=== PATIENT | female | born 1980 | race Hispanic/Latino ===

== ENCOUNTER 2018-05-10 13:47 | Emergency (ER) | payer BC, OTHER ==
--- OUTSIDE RECORDS SUMMARY | 2018-05-10 13:49 | XMS REPORT | Clinical Summary ---
:1980 Author Organization [facility] Address [address] [place] [address] Care Team Providers Name Role Phone Asked, No Pcp Primary Care Provider Unavailable Allergies No Known Allergies Current Medications Prescription Sig. Disp. Refills Start Date End Date Status losartan (COZAAR) 25 MG TAKE ONE (1) 3 09/27/2017 Active tablet TABLET(S) BY MOUTH ONCE A DAY. Active Problems Not on file Encounters Date Type Specialty Care Team Description 10/24/2017 Office Visit Obstetrics and [facility] [address] woman exam Gynecology MD Marium (Primary Dx) after 05/09/2017 Family History Medical History Relation Name Comments Diabetes Father Hypertension Father Heart attack Maternal Grandfather Hypothyroidism Mother Cancer Paternal Grandfather prostate Relation Name Status Comments Father Alive Maternal Grandfather Mother Alive Paternal Grandfather Social History Tobacco Use Types Packs/Day Years Used Date Never Smoker Smokeless Tobacco: Never Used Alcohol Use Drinks/Week oz/Week Comments No Sex Assigned at Date Recorded Not on file Last Filed Vital Signs Vital Sign Reading Time Taken Blood Pressure 138/87 10/24/2017 9:45 AM CDT Pulse 68 10/24/2017 9:45 AM CDT Temperature - - Respiratory Rate - - Oxygen Saturation - - Inhaled Oxygen Concentration - - Weight 61.7 kg (136 lb) 10/24/2017 9:45 AM CDT Height 162.6 cm (5' 4") 10/24/2017 9:45 AM CDT Body Mass Index 23.34 10/24/2017 9:45 AM CDT Plan of Treatment Health Maintenance Due Date Last Done Comments CERVICAL CANCER SCREENING 2002 INFLUENZA VACCINE 03/01/2018 Procedures Procedure Name Priority Date/Time Associated Diagnosis Comments HPV MRNA E6/E7 Routine 10/24/2017 10:50 AM Results for this CDT procedure are in the results section. THINPREP TIS PAP Routine 10/24/2017 10:50 AM Results for this CDT procedure are in the results section. after 05/09/2017 Results HPV mRNA E6/E7 (10/24/2017 10:50 AM) HPV mRNA e6/e7 Not Detected Not Detected [facility] Comment: This test was performed using the APTIMA HPV Assay ([employer] This assay detects E6/E7 viral messenger RNA (mRNA) from 14 high-risk HPV types (16,18,31,33,35,39,45,51,52,56,58,59,66,68). Other Results Text Performing Organization Information: Site ID: [id number] Name: [facility] Address: [address] [place] [id number] Director: Luci Reardon MD Performing Organization Address [facility] Phone Number [place] [phone] THINPREP TIS PAP (10/24/2017 10:50 AM) Clinical information None given [facility] Date of last menstrual NONE GIVEN Pump! [facility] period [place] Prev. pap: NONE GIVEN [facility] [place] Prev. bx: NONE GIVEN [facility] [place] Source None given [facility] Statement of adequacy [facility] Comment: [place] Satisfactory for evaluation. Endocervical/transformation zone component present. Age and/or menstrual status not provided Interpretation/result: Comment: Negative for [facility] intraepithelial lesion or [place] malignancy. Comment [facility] Comment: [place] Tip of collection device in vial This Pap test has been evaluated with computer assisted technology. Training Program Manager [facility] Comment: [place] L[facility], CT(ASCP) CT screening location: [place] [id number] Comment [facility] Comment: [place] EXPLANATORY NOTE: The Pap is a screening test for cervical cancer. It is not a diagnostic test and is subject to false negative and false positive results. It is most reliable when a satisfactory sample, regularly obtained, is submitted with relevant clinical findings and history, and when the Pap result is evaluated along with historic and current clinical information. Other Results Text Performing Organization Information: Site ID: [id number] Name: [facility] Address: [address] [place] [phone] Director: Luci Reardon MD Performing Organization Address City/State/Zipcode Phone Number [facility] [place] [address] [place] [address] after 05/09/2017 Insurance Payer Benefit Plan / Group Subscriber ID Type Phone Address CYNDI HANNA LOCAL PLUS/OPAL xxxxxxxxx HMO
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
[2018-05-10 15:40] LABS: Urine Blood 2+ (NEG); Urine Glucose NEGATIVE (NEG); Urine Protein NEGATIVE (NEG); Urine Specific Gravity 1.025 (1.005-1.030)
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
== END 2018-05-10 16:04 | disposition home or self-care (01) ==
LOC: ER 13:47
DX: M54.5 Low back pain (principal); V49.49XA Driver injured in collision with other motor vehicles in traffic accident, initial encounter; I10 Essential (primary) hypertension
CPT/HCPCS: 72131; 81003; 81025; 99284

== ENCOUNTER 2020-08-12 07:29 | Emergency (ER) | payer OTHER ==
--- OUTSIDE RECORDS SUMMARY | 2020-08-12 07:30 | XMS REPORT | Continuity of Care Document ---
:[address] [facility] [place] Address [address] [place] [address] Care Team Providers Name Role Phone Asked, No Pcp Primary Care Physician Unavailable Problems Condition Condition Condition Status Onset Resolution Last Treating Co mments Source Name Details Category Date Date Treatment Clinician Date Sciatica Sciatica Problem [facility] Sciatica, Sciatica, Problem Active [facility] right side right side [facility] Pain in Pain in Diagnosis [facility] left [facility] Pain in Pain in Problem Active [facility] right knee [facility] Allergies, Adverse Reactions, Alerts This patient has no known allergies or adverse reactions. Family History Family Member Diagnosis Comments Start Date Stop Date Source Natural father Diabetes [facility] Natural father Hypertension [place] [facility] Maternal grandfather Heart attack [facility] Natural mother Hypothyroidism [place] [facility] Paternal grandfather Cancer [facility] Social History Social Habit Start Date Stop Date Quantity Comments Source Sex Assigned At [facility] ethodi Tobacco use and 2019-07-31 2019-07-31 Never used [facility] allaodi exposure 00:00:00 00:00:00 Alcohol intake 2019-07-31 2019-07-31 Current [facility] thodist 00:00:00 00:00:00 non-drinker of alcohol (finding) Smoking Status Start Date Stop Date Source Never smoker [place] [facility] Medications Ordered Filled Start Stop Current Ordering Indication Dosage Frequency Signature Comments Components Source Medication Medication Date Date Medication? Clinician (SIG) Name Name clotrimazol 2018-08 2020- No Acute Q.5D Apply Chiqui varinder e-betametha 08-14 vaginitis topically Methodi sone 00:00: 23:59 2 (two) st (LOTRISONE) 00 :00 times a 1-0.05 % day for 14 cream days. losartan Yes TAKE ONE [place] on (COZAAR) 25 2-27 (1) Methodi MG tablet 00:00: TABLET(S) st 00 BY MOUTH ONCE A DAY. Losartan Losartan Yes Santy not [facility] Potassium Potassium [place]ilar defined [facility] Procedures This patient has no known procedures. Plan of Care Planned Activity Planned Date Details Comments Source Future Scheduled 2020-03-01 INFLUENZA VACCINE [place] [facility] Test 00:00:00 [code = INFLUENZA VACCINE] Future Scheduled 2002 Screening for [facility] thodist Test 00:00:00 malignant neoplasm of cervix (procedure) [code = 974308733] Future Scheduled 1997 COVID-19 VACCINE [place] [facility] Test 00:00:00 (#1) [code = COVID-19 VACCINE (#1)] Encounters Start End Encounter Admission Attending Care Care Encounter Source Date/Time Date/Time Type Type Clinicians Facility Department ID 2019-04-09 2019-04-09 [facility] [id number] [facility] [address] 09:30[facility]00 09[facility]30[facility] Results This patient has no known results.
--- OUTSIDE RECORDS SUMMARY | 2020-08-12 07:30 | XMS REPORT | Clinical Summary ---
:1980 Author Organization [facility] Address [address] [place] [address] Care Team Providers Name Role Phone Asked, No Pcp Primary Care Provider Unavailable Allergies No Known Active Allergies Medications Medication Sig Dispensed Refills Start Date End Date Status losartan (COZAAR) TAKE ONE (1) 3 09/27/2017 Active 25 MG tablet TABLET(S) BY MOUTH ONCE A DAY. clotrimazole-betame Apply topically 2 45 g 0 07/31/2019 0 08/14/2019 thasone (LOTRISONE) (two) times a day 1-0.05 % for 14 days. creamIndications: Acute vaginitis Active Problems No known active problems Surgical History Surgery Date Site/Laterality Comments SECTION 2006,2016 BREAST SURGERY Left 2004 cyst Medical History Medical History Date Comments Hypertension Family History Medical History Relation Name Comments Diabetes Father Hypertension Father Heart attack Maternal Grandfather Hypothyroidism Mother Cancer Paternal Grandfather prostate Relation Name Status Comments Father Alive Maternal Grandfather Mother Alive Paternal Grandfather Social History Tobacco Use Types Packs/Day Years Used Date Never Smoker Smokeless Tobacco: Never Used Alcohol Use Drinks/Week oz/Week Comments No Sex Assigned at Date Recorded Not on file Obstetrics History Grav Para Term Pre Abrt (TAB) (SAB) (Ect) Mult Lvng Comments 2 2 Date Outcome GA Total Labor/2nd/3rd Weight Sex Delivery Anes PTL Sowmya A 1 A5 Name Clin Labor Last Filed Vital Signs Not on file Plan of Treatment Health Maintenance Due Date Last Done Comments COVID-19 VACCINE (#1) 1997 CERVICAL CANCER SCREENING 2002 INFLUENZA VACCINE 03/01/2020 Results Not on fileafter 08/12/2019 Advance Directives For more information, please contact: [phone] Type Date 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
[2020-08-12] MEDS ORDERED: ONDANSETRON 4 MG/2 ML VIAL ONE (09:45)
[2020-08-12] MEDS ORDERED: NA CHLORIDE 0.9% 1,000 ML ONE (09:46)
[2020-08-12] MEDS ORDERED: KETOROLAC 30 MG/ML INJ ONE (09:46)
[2020-08-12 09:58] LABS: Absolute Lymphocytes (CBC) 1.1 K/uL (0.7-4.9); Basophils % 0.3 % (0-1.3); Hematocrit 40.8 % (36.0-45.0); Lymphocytes % 20.5 % (15.3-44.8); MPV 8.6 fL (7.6-11.3); RBC Red Blood Cell Count 4.77 M/uL (3.86-4.86)
--- NOTE | 2020-08-12 10:03 | RAD REPORT ---
EXAM DESCRIPTION: CT - Stone Protocol - 08/12/2020 9:41 am CLINICAL HISTORY: FLANK PAIN COMPARISON: No comparisons TECHNIQUE: Axial 3 on the right side mm thick images were obtained without oral or IV contrast. The [id number] spans the entirety of the system including uppermost abdomen and lung bases. All CT scans are performed using dose optimization technique as appropriate and may include automated exposure control or mA/KV adjustment according to patient size. FINDINGS: No hydronephrosis is present and no obstructing ureteral calculi. No suspicious renal mass es. Isodense masses and pyelonephritis are not excluded on a stone protocol CT scan. No significant a drenal finding. No urinary bladder suspicious finding. Patient has numerous phleboliths in the pelvic floor. Imaged portions of the liver, spleen and pancreas show no suspicious findings on non-contrast imaging . No gallbladder or biliary tree abnormality identified. Gallstones can be occult on CT imaging. No acute bowel finding. Patient has moderate stool volume filling the colon. Cecum is low lying at th e floor the pelvis. No appendicitis findings. No mass or bulky lymphadenopathy. There is laxity of the abdominal wall of the umbilicus without fasc ia disruption seen. No free air or pneumatosis. Uterus and ovaries show no suspicious findings. There is physiologic quantity of free fluid in the cul de sac. No significant bony abnormality. IMPRESSION: No hydronephrosis, obstructing calculus or acute finding. Isodense masses and pyelonephritis are not excluded on stone protocol technique. Moderate stool volume throughout the colon including the cecum which is along the floor the pelvis. T he appendix is unremarkable. No RUSTIC FENCE [employer]ILDER abnormality seen.
--- NOTE | 2020-08-12 10:12 | RAD REPORT ---
EXAM DESCRIPTION: RAD - Lumbar Spine 3 Views - 08/12/2020 9:57 am CLINICAL HISTORY: PAIN COMPARISON: Lumbar Spine 3 Views dated 04/09/2019 FINDINGS: A three-view lumbar spine examination was performed. Lumbar bodies are normal in height and alignment. No fracture or acute bony process seen. No disc spa ce narrowing. L5-S1 facet joint degenerative changes are present. No pars defects identified. Lumbar findings are not significantly different from comparison. Large amount of stool is present filling but not dilating the colon. IMPRESSION: Lower lumbar facet joint degenerative change similar to comparison. No acute lumbar find ing. Large stool volume in the colon.
[2020-08-12 10:14] LABS: ALT/SGPT 17 U/L (12-78); AST/SGOT 13 U/L (15-37); Albumin 4.2 g/dL (3.4-5.0); Alkaline Phosphatase 65 U/L (45-117); BUN Blood Urea Nitrogen 17 mg/dL (7-18); Bicarbonate 28 mmol/L (21-32); Bilirubin Direct 0.1 mg/dL (0-0.2); Bilirubin Total 0.5 mg/dL (0.2-1.0); Glucose Level 95 mg/dL (74-106); Lipase 118 U/L (73-393); Potassium 4.3 mmol/L (3.5-5.1); Protein, Total 7.8 g/dL (6.4-8.2); Sodium Level 140 mmol/L (136-145)
--- NOTE | 2020-08-12 11:20 | EDPHYS ---
Physician Documentation [facility] Name: Rosalva Blue Age: 40 yrs Sex: Female : 1980 Arrival Date: 08/12/2020 Time: 07:32 Bed 20 Private MD: Marcelo Concepcion HPI: 08/12 09:28 This 40 yrs old Female presents to ER via Ambulatory with complaints of Low michael Back Pain. 09:28 The patient presents with pain that is acute, with no known mechanism of injury. The michael symptoms are located in the lumbar area, right mid back and right low back. The pain does not radiate. The problem was sustained from unknown cause. Onset: The symptoms/episode began/occurred yesterday. Modifying factors: The patient symptoms are alleviated by nothing, the patient symptoms are aggravated by movement, nothing. Associated signs and symptoms: The patient has no apparent associated signs or symptoms. Severity of symptoms: At their worst the symptoms were moderate, in the emergency department the symptoms are unchanged. The patient has not experienced similar symptoms in the past. HOME CARE RN: 11:51 LMP N/A - control method ll1 Historical: - Allergies: 08:01 No Known Allergies; ss - PMHx: 08:01 Hypertension; ss - PSHx: 08:01 ; ss - Immunization history:: Adult Immunizations unknown. - Social history:: Smoking status: Patient denies any tobacco usage or history of. - Family history:: not pertinent. ROS: 09:28 Constitutional: Negative for fever, chills, and weight loss, Eyes: Negative for injury, michael pain, redness, and discharge, ENT: Negative for injury, pain, and discharge, Neck: Negative for injury, pain, and swelling, Cardiovascular: Negative for chest pain, palpitations, and edema, Respiratory: Negative for shortness of breath, cough, wheezing, and pleuritic chest pain, Abdomen/GI: Negative for abdominal pain, nausea, vomiting, diarrhea, and constipation, : Negative for injury, bleeding, discharge, and swelling, MS/Extremity: Negative for injury and deformity, Skin: Negative for injury, rash, and discoloration, Neuro: Negative for headache, weakness, numbness, tingling, and seizure, Psych: Negative for depression, anxiety, suicide ideation, homicidal ideation, and hallucinations, Allergy/Immunology: Negative for hives, rash, and allergies, Endocrine: Negative for neck swelling, polydipsia, polyuria, polyphagia, and marked weight changes, Hematologic/Lymphatic: Negative for swollen nodes, abnormal bleeding, and unusual bruising. 09:28 Back: Positive for decreased range of motion, pain at rest, flank pain, on the right. 09:28 MS/extremity: Negative for acute changes. Exam: 09:28 Constitutional: This is a well developed, well nourished patient who is awake, alert, michael and in no acute distress. Head/Face: Normocephalic, atraumatic. Eyes: Pupils equal round and reactive to light, extra-ocular motions intact. Lids and lashes normal. Conjunctiva and sclera are non-icteric and not injected. Cornea within normal limits. Periorbital areas with no swelling, redness, or edema. ENT: Nares patent. No nasal discharge, no septal abnormalities noted. Tympanic membranes are normal and external auditory canals are clear. Oropharynx with no redness, swelling, or masses, exudates, or evidence of obstruction, uvula midline. Mucous membranes moist. Neck: Trachea midline, no thyromegaly or masses palpated, and no cervical lymphadenopathy. Supple, full range of motion without nuchal rigidity, or vertebral point tenderness. No Meningismus. Chest/axilla: Normal chest wall appearance and motion. Nontender with no deformity. No lesions are appreciated. Cardiovascular: Regular rate and rhythm with a normal S1 and S2. No gallops, murmurs, or rubs. Normal PMI, no JVD. No pulse deficits. Respiratory: Lungs have equal breath sounds bilaterally, clear to auscultation and percussion. No rales, rhonchi or wheezes noted. No increased work of breathing, no retractions or nasal flaring. Back: No spinal tenderness. No costovertebral tenderness. Full range of motion. Skin: Warm, dry with normal turgor. Normal color with no rashes, no lesions, and no evidence of cellulitis. MS/ Extremity: Pulses equal, no cyanosis. Neurovascular intact. Full, normal range of motion. Neuro: Awake and alert, GCS 15, oriented to person, place, time, and situation. Cranial nerves II-XII grossly intact. Motor strength 5/5 in all extremities. Sensory grossly intact. Cerebellar exam normal. Normal gait. Psych: Awake, alert, with orientation to person, place and time. Behavior, mood, and affect are within normal limits. 09:28 Abdomen/GI: Inspection: abdomen appears normal, Bowel sounds: normal, Palpation: abdomen is soft and non-tender, in all quadrants, Liver: no appreciated palpable abnormalities, Hernia: not appreciated. 09:28 Musculoskeletal/extremity: DVT Exam: No signs of deep vein thrombosis. no pain, no swelling, no tenderness, negative Homans' sign noted on exam, no appreciated bluish discoloration, no erythema, no increased warmth. Vital Signs: 07:59 BP 142 / 92; Pulse 68; Resp 14; Temp 97.7(TE); Pulse Ox 99% on R/A; Height 5 ft. 3 in. ss (160.02 cm); Pain 8/10; 11:51 BP 126 / 86; Pulse 54; Resp 16; Pulse Ox 100% ; Pain 5/10; ll1 MDM: 09:10 Patient medically screened. [facility] 09:31 Differential diagnosis: arthritis, strain, fracture, sciatica, Herniated disc UTI. Data michael reviewed: vital signs, nurses notes, lab test result(s), radiologic studies, CT scan, plain films. Data interpreted: cardiac monitor: rate is 68 beats/min, rhythm is regular. Test interpretation: by ED physician or midlevel provider: plain radiologic studies. Counseling: I had a detailed discussion with the patient and/or guardian regarding: the historical points, exam findings, and any diagnostic results supporting the discharge/admit diagnosis, lab results, radiology results. 08/12 09:24 Order name: Basic Metabolic Panel; Complete Time: 11:18 [facility] 08/12 09:24 Order name: CBC with Diff; Complete Time: 11:18 [facility] 08/12 09:24 Order name: Hepatic Function; Complete Time: 11:18 [facility] 08/12 09:24 Order name: Lipase; Complete Time: 11:18 [facility] 08/12 09:39 Order name: Urine Dipstick--Ancillary (enter results) bd 08/12 09:41 Order name: Urine --Ancillary (enter results) bd 08/12 09:24 Order name: IV Saline Lock; Complete Time: 11:23 [facility] 08/12 09:24 Order name: Labs collected and sent; Complete Time: 11:23 [facility] 08/12 09:24 Order name: Urine Dipstick-Ancillary (obtain specimen); Complete Time: 09:26 [facility] 08/12 09:24 Order name: CT Stone Protocol; Complete Time: 11:18 [facility] 08/12 09:32 Order name: Lumbar Spine (3 Views) XRAY; Complete Time: 11:18 [facility] 08/12 09:24 Order name: Urine Test (obtain specimen); Complete Time: 09:26 [facility] Administered Medications: 10:11 Drug: NS 0.9% 1000 ml Route: IV; Rate: 1 bolus; Site: left antecubital; ss 11:53 Follow up: Response: No adverse reaction; IV Status: Completed infusion; IV Intake: ll1 1000ml 10:11 Drug: TORadol 30 mg Route: IVP; Site: left antecubital; ss 11:53 Follow up: Response: No adverse reaction; Pain is decreased; RASS: Alert and Calm (0) ll1 11:35 Not Given (Patient Refused): Zofran (Ondansetron) 4 mg IVP once; over 2 minutes ll1 Disposition: 08/12/20 11:20 Discharged to Home. Impression: Low back pain, Constipation. - Condition is Stable. - Discharge Instructions: Back Pain, Adult, Constipation, Adult, Musculoskeletal Pain, Back Pain, Adult, [id number]. - Prescriptions for Ibuprofen 600 mg Oral Tablet - take 1 tablet by ORAL route every 6 hours As needed take with food; 20 tablet. Medrol (Keith) 4 mg Oral Tablets, Dose Pack - take 1 tablet by ORAL route as directed - follow package instructions; 1 packet. Cyclobenzaprine 5 mg Oral Tablet - take 1 tablet by ORAL route 3 times per day As needed; 15 tablet. Miralax 17 gram/dose Oral - take 1 packet by ORAL route once daily dilute powder in 8 ounces of water or juice; 14 packet. - Medication Reconciliation Form, Thank You Letter, Antibiotic Education, Prescription Opioid Use, Work release form form. - Follow up: Private Physician; When: 2 - 3 days; Reason: Recheck today's complaints, Continuance of care, Re-evaluation by your physician. - Problem is new. - Symptoms have improved. Signatures: Dispatcher [employer] EDMarcelo Pickett MD MD cha Smirch, Shelby, RN RN ss Cooper, Lynsay, RN RN ll1 Corrections: (The following items were deleted from the chart) 11:53 11:20 08/12/2020 11:20 Discharged to Home. Impression: Low back pain; Constipation. ll1 Condition is Stable. Discharge Instructions: Back Pain, Adult, Musculoskeletal Pain, Back Pain, Adult, [id number]. Prescriptions for Ibuprofen 600 mg Oral Tablet - take 1 tablet by ORAL route every 6 hours As needed take with food; 20 tablet, Tylenol-Codeine #3 300-30 mg Oral Tablet - take 2 tablets by ORAL route every 6 hours As needed; 24 tablet, Medrol (Keith) 4 mg Oral Tablets, Dose Pack - take 1 tablet by ORAL route as directed - follow package instructions; 1 packet, Cyclobenzaprine 5 mg Oral Tablet - take 1 tablet by ORAL route 3 times per day As needed; 15 tablet. and Forms are Medication Reconciliation Form, Thank You Letter, Antibiotic Education, Prescription Opioid Use. Follow up: Private Physician; When: 2 - 3 days; Reason: Recheck today's complaints, Continuance of care, Re-evaluation by your physician. Problem is new. Symptoms have improved. michael
--- NOTE | 2020-08-12 11:20 | ER ---
Nurse's Notes [facility] Name: Rosalva Blue Age: 40 yrs Sex: Female : 1980 Arrival Date: 08/12/2020 Time: 07:32 Bed 20 Private MD: Diagnosis: Low back pain;Constipation Presentation: 08/12 07:59 Chief complaint: Patient states: R low back pain that began over the weekend. No known ss injury. Coronavirus screen: Client denies travel out of the [place] in the last 14 days. Ebola Screen: Patient denies exposure to infectious person. Patient denies travel to an Ebola-affected area in the 21 days before illness onset. Initial Sepsis Screen: Does the patient meet any 2 criteria? No. Patient's initial sepsis screen is negative. Does the patient have a suspected source of infection? No. Patient's initial sepsis screen is negative. Risk Assessment: Do you want to hurt yourself or someone else? Patient reports no desire to harm self or others. Onset of symptoms was August 08, 2020. 07:59 Method Of Arrival: Ambulatory ss 07:59 Acuity: MOE 4 ss Triage Assessment: 11:51 General: Appears in no apparent distress. Behavior is calm, cooperative, appropriate ll1 for age. Pain: Complains of pain in right low back. MANAGER IMPLEMENTATION: 11:51 LMP N/A - control method ll1 Historical: - Allergies: 08:01 No Known Allergies; ss - PMHx: 08:01 Hypertension; ss - PSHx: 08:01 ; ss - Immunization history:: Adult Immunizations unknown. - Social history:: Smoking status: Patient denies any tobacco usage or history of. - Family history:: not pertinent. Screenin:40 Abuse screen: Denies threats or abuse. Denies injuries from another. Nutritional ss screening: No deficits noted. Tuberculosis screening: Never had TB. Fall Risk None identified. Assessment: 09:38 Reassessment: Pt to Ct at this time VIA wheelchair with neurology tech. ss 10:00 Reassessment: No changes from previously documented assessment. Patient and/or family ll1 updated on plan of care and expected duration. Pain level reassessed. Patient is alert, oriented x 3, equal unlabored respirations, skin warm/dry/pink. 11:00 Reassessment: No changes from previously documented assessment. Patient and/or family ll1 updated on plan of care and expected duration. Pain level reassessed. Patient is alert, oriented x 3, equal unlabored respirations, skin warm/dry/pink. 11:45 Reassessment: No changes from previously documented assessment. Patient and/or family ll1 updated on plan of care and expected duration. Pain level reassessed. Patient is alert, oriented x 3, equal unlabored respirations, skin warm/dry/pink. Vital Signs: 07:59 BP 142 / 92; Pulse 68; Resp 14; Temp 97.7(TE); Pulse Ox 99% on R/A; Height 5 ft. 3 in. ss (160.02 cm); Pain 8/10; 11:51 BP 126 / 86; Pulse 54; Resp 16; Pulse Ox 100% ; Pain 5/10; ll1 ED Course: 07:32 Patient arrived in ED. ds1 07:34 Marcelo Brewer MD is Attending Physician. michael 08:00 Triage completed. ss 08:01 Arm band placed on right wrist. ss 09:30 Urine collected: clean catch specimen, clear. Inserted saline lock: 20 gauge in left ss antecubital area, using aseptic technique. Blood collected. 09:38 Deborah Jones, DINA is Primary Nurse. ss 09:40 Patient has correct armband on for positive identification. Bed in low position. Call light in reach. 09:41 CT Stone Protocol In Process Unspecified. EDMS 09:55 Lumbar Spine (3 Views) XRAY In Process Unspecified. EDMS 11:51 IV discontinued, intact, bleeding controlled, No redness/swelling at site. Pressure ll1 dressing applied. 11:52 No provider procedures requiring assistance completed. ll1 Administered Medications: 10:11 Drug: NS 0.9% 1000 ml Route: IV; Rate: 1 bolus; Site: left antecubital; ss 11:53 Follow up: Response: No adverse reaction; IV Status: Completed infusion; IV Intake: ll1 1000ml 10:11 Drug: TORadol 30 mg Route: IVP; Site: left antecubital; ss 11:53 Follow up: Response: No adverse reaction; Pain is decreased; RASS: Alert and Calm (0) ll1 11:35 Not Given (Patient Refused): Zofran (Ondansetron) 4 mg IVP once; over 2 minutes ll1 Intake: :53 IV: 1000ml; Total: 1000ml. ll1 Outcome: 11:20 Discharge ordered by . michael : Discharged to home ambulatory. 1 : Condition: stable :52 Discharge instructions given to patient, Instructed on discharge instructions, follow up and referral plans. medication usage, Demonstrated understanding of instructions, follow-up care, medications, Prescriptions given X 4. :53 Patient left the ED. 1 Signatures: Dispatcher [employer] EDMA Marcelo Brewer MD MD cha Sanford, Demi ds1 Deborah Jones, Sharlene Barron RN, RN RN 1
[2020-08-12 11:26] LABS: Urine Blood NEGATIVE (NEG); Urine Glucose NEGATIVE (NEG); Urine Protein NEGATIVE (NEG); Urine Specific Gravity 1.025 (1.005-1.030); Urine pH 5.5 (5.0-7.0)
[2020-08-12 11:26] LABS: Urine Specific Gravity 1.025 (1.005-1.030)
[2020-08-12 11:58] VITALS: TEMP 97.7
[2020-08-12 11:59] VITALS: BP 126/86; O2SAT 100
== END 2020-08-12 11:53 | disposition home or self-care (01) ==
LOC: ER 07:29
DX: K59.00 Constipation, unspecified (principal); I10 Essential (primary) hypertension
CPT/HCPCS: 85025; 80048; 36415; 81025; 80076; 81003; 83690; 76377; 74176; 72100; J7030; J2405; 96361; 96374; 99284